=== PATIENT | female | born 1970 | race Two or more races ===

== ENCOUNTER 2023-03-20 11:52 | Emergency (ER) | payer OTHER ==
[~2023-03-20] VITALS: Ht 167.6 cm; Wt 50.8 kg
[2023-03-20] MEDS ORDERED: LORAZEPAM INJ 2 MG/ML VIAL ONE (12:28)
[2023-03-20] MEDS ORDERED: LORAZEPAM INJ 2 MG/ML VIAL IM ONE (12:30)
[2023-03-20 12:47] LABS: BASOPHILS % (AUTO) 0.4 % (0.0-2.0); EOSINOPHILS % (AUTO) 0.3 % (0.0-6.0); HEMATOCRIT 43 % (33-45); HEMOGLOBIN 14.5 g/dL (11.5-14.8); LYMPHOCYTES # (AUTO) 1.2 K/uL (0.8-4.8); LYMPHOCYTES % (AUTO) 17.2 % (20.0-44.0); MEAN CORPUSCULAR HEMOGLOBIN 29 PG (26.0-33.0); MEAN CORPUSCULAR HGB CONC 33 g/dl (31.0-36.0); MEAN CORPUSCULAR VOLUME 85 fL (82-100); MONOCYTES # (AUTO) 0.6 K/uL (0.1-1.30); MONOCYTES % (AUTO) 8.6 % (2.0-12.0); NEUTROPHILS % (AUTO) 73.5 % (43.0-81.0); PLATELET COUNT (AUTO) 339 K/uL (150-450); RED BLOOD CELL COUNT(AUTO) 5.09 MIL/uL (4.0-5.2); RED CELL DISTRIBUTION WIDTH 13.1 % (11.5-15.0); WHITE BLOOD COUNT (AUTO) 6.8 K/uL (4.3-11.0)
[2023-03-20 13:03] LABS: CALCIUM, SERUM 8.8 mg/dL (8.5-10.1); CARBON DIOXIDE 28 mmol/L (21-32); CHLORIDE 92 mmol/L (98-107); CREATININE 0.6 mg/dL (0.6-1.3); GLUCOSE 90 mg/dL (74-106); POTASSIUM 3.8 mmol/L (3.5-5.1); SODIUM SERUM 130 mmol/L (136-145); UREA NITROGEN, BLOOD 7 mg/dL (7-18)
[2023-03-20 13:17] LABS: APPEARANCE,URINE CLEAR (CLEAR); BILIRUBIN,URINE NEGATIVE (NEGATIVE); BLOOD, URINE 1+ Ery/uL (NEGATIVE); COLOR,URINE YELLOW (YELLOW); KETONES,URINE NEGATIVE (NEGATIVE); LEUKOCYTE ESTERASE ,URINE NEGATIVE (NEGATIVE); NITRITE, URINE NEGATIVE (NEGATIVE); PH,URINE 6.5 (5.0-8.0); PROTEIN,URINE NEGATIVE (NEGATIVE); UGLUCOSE NEGATIVE (NEGATIVE); UROBILINOGEN,URINE 0.2 EU/dL (0.2)
[2023-03-20 13:35] LABS: ADD URINE CULTURE NO; BACTERIA,URINE Rare /HPF (None Seen); SQUAMOUS EPITHELIAL CELL,UR Rare /HPF (None Seen); WBC,URINE 0-2 /HPF (0-3)
[2023-03-20 13:39] LABS: AMPHETAMINE, URINE NEGATIVE (NEGATIVE); BARBITURATE, URINE NEGATIVE (NEGATIVE); BENZODIAZEPINE, URINE NEGATIVE (NEGATIVE); CANNABINOID, URINE NEGATIVE (NEGATIVE); COCCAINE, URINE NEGATIVE (NEGATIVE); OPIATE, URINE NEGATIVE (NEGATIVE); PHENCYCLIDINE SCREEN,URINE NEGATIVE (NEGATIVE)
[2023-03-20] MEDS ORDERED: diphenhydrAMINE HCL 50 MG/ML VIAL ONE (22:05)
[2023-03-20] MEDS ORDERED: diphenhydrAMINE HCL 50 MG/ML VIAL IM ONE (22:30)
[2023-03-21 02:17] LABS: ACETAMINOPHEN 0 ug/ml (10-30); ALANINE AMINOTRANSFERASE 33 U/L (12-78); ALBUMIN 4.3 g/dL (3.4-5.0); ALCOHOL, BLOOD < 3 mg/dL (0-10); ALKALINE PHOSPHATASE 74 U/L (46-116); ASPARTATE AMINOTRANSFERASE 29 U/L (15-37); BILIRUBIN,DIRECT 0.2 mg/dL (0.0-0.2); BILIRUBIN,TOTAL 0.7 mg/dL (0.2-1.0); SALICYLATE < 0.2 mg/dL (2.8-20.0); TOTAL PROTEIN, SERUM 7.9 g/dL (6.4-8.2)
[2023-03-21] MEDS ORDERED: diphenhydrAMINE HCL 25 MG CAPSULE PO ONE (03:30)
[2023-03-21] MEDS ORDERED: diphenhydrAMINE HCL 50 MG CAPSULE ONE (03:34)
[2023-03-21] MEDS ORDERED: OLANZAPINE 5 MG TABLET ONE (05:59)
[2023-03-21] MEDS ORDERED: OLANZAPINE 5 MG TABLET PO ONE (06:00)
[2023-03-21] MEDS ORDERED: LORAZEPAM INJ 2 MG/ML VIAL ONE (06:17)
[2023-03-21] MEDS ORDERED: diphenhydrAMINE HCL 50 MG/ML VIAL ONE (06:17)
[2023-03-21] MEDS ORDERED: OLANZAPINE 10 MG VIAL IM ONE ×2 (06:17→06:30)
[2023-03-21] MEDS ORDERED: LORAZEPAM INJ 2 MG/ML VIAL IM ONE (06:30)
[2023-03-21] MEDS ORDERED: diphenhydrAMINE HCL 50 MG/ML VIAL IM ONE (06:30)
[2023-03-21 11:44] VITALS: BP 110/62; TEMP 98.4; O2SAT 100
== END 2023-03-21 11:46 ==
LOC: ER 12:03
DX: G47.00 Insomnia, unspecified (principal); F41.9 Anxiety disorder, unspecified; Z20.822 Contact with and (suspected) exposure to COVID-19
CPT/HCPCS: 99285; 96372 ×4; 85025; 80048; 80076; 81001; 36415; 87426; 80143; 80320; 80307; J2060 ×2; J1200 ×2; C9803; Q0163; J3490; G0480